=== PATIENT | male | born 1965 | race Caucasian/White ===

== ENCOUNTER 2022-04-11 05:41 | Day surgery (SDC) | payer BC ==
[2022-04-11] MEDS ORDERED: Ringers Lactate 1,000 ML IV ONE (05:50)
[2022-04-11] MEDS ORDERED: LIDOCAINE 1% MPF 5 ML VIAL ONE ×2 (06:07→06:09)
[2022-04-11] MEDS ORDERED: FENTANYL CITR 100 MCG/2 ML ONE (06:07)
[2022-04-11] MEDS ORDERED: MIDAZOLAM HCL 2 MG/2 ML INJ ONE (06:08)
[2022-04-11] MEDS ORDERED: dexAMETHasone 4 MG/ML VIAL ONE (06:08)
[2022-04-11] MEDS ORDERED: propofoL 200 MG/20 ML VIAL IV ONE (06:28)
[2022-04-11] MEDS ORDERED: LIDOCAINE 2% MPF 5 ML VIAL ONE (06:28)
[2022-04-11 06:29] LABS: SARS-CoV-2 Antigen Rapid Res Negative (Negative)
[2022-04-11] MEDS ORDERED: BUPIVACAINE 0.5% PF 10 ML VIAL ONE (06:47)
[2022-04-11] MEDS: CEFAZOLIN SODIUM 1 GM/VIAL ONE ×2 (07:30→07:55)
[2022-04-11] MEDS ORDERED: KETOROLAC 30 MG/ML INJ ONE (07:52)
[2022-04-11] MEDS ORDERED: CEFAZOLIN SODIUM 1 GM/VIAL ONE (08:13)
--- NOTE | 2022-04-11 09:56 | RAD REPORT ---
EXAM DESCRIPTION: RAD - Ankle Right 3 View - 04/11/2022 9:40 am CLINICAL HISTORY: ORIF RIGHT ANKLE COMPARISON: No comparisons FINDINGS/IMPRESSION: Seven intraoperative fluoroscopic images were submitted showing placement of a distal fibular plate and screw. Fluoro time: 0.1 minutes Cumulative dose: 0.162 mGy
[2022-04-11 10:02] VITALS: O2SAT 100
[2022-04-11 10:10] VITALS: BP 125/79; TEMP 96.7
== END 2022-04-11 11:08 | disposition home or self-care (01) ==
LOC: OR 05:41
PROVIDERS: ATTEND Podiatrist Foot & Ankle Surgery
PROC: 0QSJ04Z Reposition Right Fibula with Internal Fixation Device, Open Approach (ICD-10-PCS; principal; 2022-04-11 07:00)
DX: S82.61XA Displaced fracture of lateral malleolus of right fibula, initial encounter for closed fracture (principal)
CPT/HCPCS: 36415; 73610; 87811; 27792; J2704; J1100; J2001 ×3; J2250; J3010; J7120; J0690 ×2